=== PATIENT | male | born 1975 | race Hispanic/Latino ===

== ENCOUNTER 2018-12-25 20:36 | Emergency (ER) | payer OTHER ==
[~2018-12-25] VITALS: Ht 167.6 cm; Wt 113.4 kg
[~2018-12-25 20:36] MED LIST: ASPIRIN EC81 MG PO; KRILL OIL 1,001 EAC1 PO; LISINOPRIL10 MG PO; METFORMIN HCL500 MG PO; PHENTERMINE HCL30 MG PO; TESTOSTERO200 MG/1 M IM
--- OUTSIDE RECORDS SUMMARY | 2018-12-25 20:40 | XMS ---
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 Jen VISIT COUNT ([address] [facility] 1 [facility] [place] TOTAL 2 NOTE: Visits indicate total known visits. ED/UCC VISIT TRACKING (12 MO.) 12/25/2018 20:37 [facility] [place] TYPE: Emergency COMPLAINT: - BP ISSUES 12/18/2018 02:15 [facility] [place] TYPE: Emergency DIAGNOSES: - HEADACHE - Headache INPATIENT VISIT TRACKING (12 MO.) No inpatient visits to display in this time frame [email or web address]
[2018-12-25] MEDS ORDERED: TENORMIN50 MG PO (21:14)
[2018-12-25] MEDS ORDERED: SUMATRIPTAN SU100 MG PO (22:21)
== END 2018-12-25 22:32 | disposition home or self-care (01) ==
LOC: ED 20:36
DX: R51 Headache (principal); I10 Essential (primary) hypertension; E11.9 Type 2 diabetes mellitus without complications; Z87.891 Personal history of nicotine dependence; Z79.82 Long term (current) use of aspirin; Z79.899 Other long term (current) drug therapy; Z79.84 Long term (current) use of oral hypoglycemic drugs
CPT/HCPCS: 96361; 96374; 96375; 99283-25; J0780; J1100; J1200; J1885; J7030